=== PATIENT | female | born 1970 | race Caucasian/White ===

== ENCOUNTER 2019-09-01 18:23 | Inpatient (IN) | payer OTHER ==
[~2019-09-01] VITALS: Ht 152.4 cm; Wt 94.3 kg
--- NOTE | ~2019-09-01 | HC ---
[facility] [place] [address] CONSULTATION Name: CHARLOTTE POWELL Room #: 360-P ADM IN M.R.#: [id number] Admission: 09/01/19 Attend Phys: Bruce Meade MD Discharge: Date of : 70 Report #: [id number] THIS REPORT FOR: cc: MELE - Liz family physician/PCP MELE - Liz family physician/PCP Eze Berger MD ~ CC: [facility] physician/PCP Bruce Meade DATE OF SERVICE: 09/22/2019 HISTORY OF PRESENT ILLNESS: The patient is a 48-year-old female, Georgian-speaking, admitted with acute respiratory failure, COVID-19 pneumonia, was mechanically ventilated, able to be extubated after 8 days. She was treated with IV Solu-Medrol and IV antibiotics as per Infectious Disease. She was noted to have severe sepsis. She was diagnosed with acute renal insufficiency superimposed on chronic kidney disease. She has significant distal upper and lower extremity weakness with wrist drop and foot drop. She is gradually improving with her functional mobility. MRI of the T-spine was unremarkable. MRI of the lumbar spine is as noted with some degenerative changes. We have been consulted regarding her rehabilitation issues. PAST MEDICAL HISTORY: Includes diabetes mellitus type 2, obesity, elevated lipids and hypertension. MEDICATIONS: Please see the full medication listing. 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 She has a brother who also was COVID positive in the ICU. PHYSICAL EXAMINATION: The patient was not physically examined. She remains COVID positive. Therapies are working with her and she is noted to have wrist weakness in extension as well as ankle dorsiflexor weakness in physical therapy. She is improving with sit to stand, mod assist and she is starting to take some side steps to the commode with a front-wheeled walker. She has decreased endurance. Lower extremity dressing is max assist in OT. She is standing approximately 20 seconds before fatigue and is using the front-wheeled walker for balance. She is able to wash her face with min assist in OT. Max assist to doff socks. She has decreased endurance. She did undergo a swallow evaluation by speech and is on mechanical soft diet with thin liquids. ASSESSMENT: A 48-year-old Georgian-speaking female with the following problem list: 1. 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 Her weakness is distal upper and lower extremities greater than proximal. 2. COVID-19 positive, acute respiratory failure with pneumonia. [address] [address] CONSULTATION Name: CHARLOTTE POWELL Room #: 360-P [facility] IN ..#: [id number] Admission: 09/01/19 Attend Phys: Bruce Meade MD Discharge: Date of : 70 Report #: [id number] 3. Severe sepsis. 4. Acute renal insufficiency with chronic kidney disease, last creatinine has normalized. 5. Diabetes mellitus type 2. 6. Hypertension. 7. Hyperlipidemia. Note that Neurology is being consulted regarding the weakness. Their impression is most likely a neuropathy caused by the diabetes and aggravated by other problems including the kidney issues. PLAN: The patient is a candidate for an acute in-hospital inpatient [address] [place] [address] rehabilitation stay once she is COVID negative x 2. At this point, we will continue to follow along with you. Thank you for asking us to assist in this patient's care. By: [id number] Eze Berger MD /nt
[2019-09-01 18:43] VITALS: BP 124/68
[2019-09-01 19:46] LABS: ABSOLUTE NEUTROPHILS 8.7 thou/uL (1.4-8.2); BASOPHILS 0.2 % (0.0-2.0); HEMATOCRIT 36.3 % (37.0-47.0); HEMOGLOBIN 11.9 gm/dL (12.0-15.0); LYMPHOCYTES 11.1 % (24.0-44.0); MCH 30.4 pg (26.0-34.0); MCHC 32.7 g/dL (28.0-37.0); MCV 93.1 fL (80.0-100.0); MONOCYTES 5.2 % (1.0-8.0); PLATELET COUNT 227 thou/uL (150-400); POLYS 83.5 % (36.0-66.0); RDW 13.6 % (10.5-14.5); WBC 10.4 thou/uL (4.0-11.0)
[2019-09-01 19:55] LABS: ANION GAP 10 mmol/L (7-16); BUN 35 mg/dL (7-18); CALCIUM 8.9 mg/dL (8.5-10.1); CHLORIDE 96 mmol/L (98-107); CO2 25 mmol/L (21-32); CREATININE 1.5 mg/dL (0.6-1.0); GLUCOSE 261 mg/dL (74-106); SODIUM 131 mmol/L (136-145)
[2019-09-01 20:05] LABS: ALBUMIN 2.9 g/dL (3.4-5.0); SGOT 29 U/L (15-37); SGPT 59 U/L (30-65); TOTAL BILIRUBIN 0.4 mg/dL (0.2-1.0); TOTAL PROTEIN 7.5 g/dL (6.4-8.2); TROPONIN-I <0.06 ng/mL (<0.06)
[2019-09-01 21:50] LABS: CHOLESTEROL 147 mg/dL (<200); HDL CHOLESTEROL 57 mg/dL (>40); LDL CHOLESTEROL 56 mg/dL (<100); TC:HDL 2.6 Ratio (Not establshd); TRIGLYCERIDE 171 mg/dL (<150); VLDL 34 mg/dL (<40)
[2019-09-01] MEDS ORDERED: METOPROLOL TART25 MG PO (23:41)
[2019-09-01] MEDS ORDERED: ATORVASTATIN CA80 MG PO (23:41)
[2019-09-01] MEDS ORDERED: LISINOPRIL-HCT1 EAC2 PO (23:41)
[2019-09-01] MEDS ORDERED: AMLODIPINE BESY10 MG PO (23:41)
[2019-09-02] VITALS (9 sets, daily range): BP systolic 110–158; BP diastolic 62–98
--- NOTE | 2019-09-02 02:44 | NUR ---
0230 PT TO FLOOR, VITAL SIGNS TAKEN PT UP TO BEDSIDE COMMODE, ORIENTED TO ROOM. ATTEMPTING TO CALL TRANSLATION LINE TO COMPLETE ADMISSION ASSESSMENT.
[2019-09-02 06:00] LABS: HEMATOCRIT 33.8 % (37.0-47.0); HEMOGLOBIN 11.1 gm/dL (12.0-15.0); MCH 31.1 pg (26.0-34.0); MCHC 32.9 g/dL (28.0-37.0); MCV 94.6 fL (80.0-100.0); RBC 3.57 mil/uL (4.20-5.00); RDW 13.6 % (10.5-14.5); WBC 8.5 thou/uL (4.0-11.0)
[2019-09-02 06:05] LABS: CALCIUM 8.1 mg/dL (8.5-10.1); CREATININE 1.6 mg/dL (0.6-1.0); MAGNESIUM 1.9 mg/dL (1.8-2.4); POTASSIUM 4.6 mmol/L (3.5-5.1)
--- NOTE | 2019-09-02 08:07 | EKG ---
[facility] [place] [address] ELECTROCARDIOGRAM REPORT Name: CHARLOTTE POWELL Room #: 355-P ADM IN M.R.#: [id number] Admission: 09/01/19 Attend Phys: Bruce Meade MD Discharge: Date of : 70 Report #: [id number] THIS REPORT FOR: cc: FAM - No family physician/PCP FAM - No family physician/PCP Denny Morales MD [facility] ~ THIS REPORT FOR: //name// [facility] ED Test Date: 2019-09-01 Test Time: 19:57:22 Pat Name: CHARLOTTE MONTEZ Department: Room: [facility] Gender: F Technical Proposal Writer: DAVID : 1970 Requested By: Wojciech León Order Number: [id number] MD: Denny Morales Measurements Intervals [place] Rate: 100 P: 8 CO: 117 QRS: -25 QRSD: 85 T: 47 QT: 329 QTc: 425 Interpretive Statements Sinus tachycardia Borderline left axis deviation No previous ECG available for comparison Electronically Signed On 09-02-2019 8:06:58 CDT by Denny Morales [email or web address] <ELECTRONICALLY SIGNED> By: Denny Morales MD, [facility] 09/02/1906 56 56 Denny Morales MD, [facility] /EPI
--- NOTE | 2019-09-02 14:33 | NUR ---
Case opened to follow for dc planning. [employer] Leaf Printer spoke with the pt via phone as she is in enhanced ISO d/t covid+. She speaks Venezuelan only. She reports living with her dtr, son in law and grandchildren at [address], [facility]. Her son Cortes is her emergency contact at [phone]. 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 His name is Hamzah Garcia and he is currently in ICU. She has utlized the [facility] in [place] as well as [facility]. Support provided and case mgnt role introduced. Her cell number is [phone]. She would like to be updated as to her brother's condition. She reports that he is homeless and has been living out of her car. Her dtr did not want him staying with them d/t the virus. Pt may need script/or dme assistance at dc. Will follow.
--- NOTE | 2019-09-02 17:17 | NUR ---
ASSUMED CARE AT CHANGE OF SHIFT. PT ALERT X4, LIVES WITH SON AND DTR-N-LAW,BHUTANESE IS PRIMARY LANGUAGE. STEADY ON FEET. STAND BY FOR ASSIST TO TOILET. CRITICAL HIGH BS CURRENTLY ON INSULIN DRIP. 3 L NASAL CANNULA.NSR ON TELE. DENIES CHEST PAIN, HEADACHE MANAGED WITH PRN MEDICATIONS. SOB WITH EXERTIONS. GOOD COUGH EFFERT NOTED. VITALS STABLE. CALL LIGHT AND PERSONAL ITEMS IN REACH. CONTINUE TO MONITORL.
[2019-09-03] VITALS (56 sets, daily range): BP systolic 90–172; BP diastolic 53–89
[2019-09-03 00:06] LABS: GLYCOHEMOGLOBIN (HGB A1C) 14.9 % (4.8-5.6)
[2019-09-03 00:46] LABS: BE(vivo) -5.4 mmol/L (-2 to +3); HCO3 19.4 mmol/L (22.0-26.0); PCO2 35.6 mmHg (35.0-45.0); PO2 75.6 mmHg (80.0-100.0); pH 7.354 (7.360-7.450); sO2 94.7 % (92.0-98.0)
[2019-09-03 01:19] LABS: CALCIUM 8.3 mg/dL (8.5-10.1); CREATININE 1.8 mg/dL (0.6-1.0); POTASSIUM 3.9 mmol/L (3.5-5.1)
[2019-09-03 01:22] LABS: MAGNESIUM 2.1 mg/dL (1.8-2.4); PHOSPHORUS 3.3 mg/dL (2.5-4.9)
--- NOTE | 2019-09-03 03:18 | NUR ---
ASSUMED CARE OF PT APPROX 1900HRS. PT IS NON-JAPANESE SPEAKING (FIJIAN ONLY SPEAKING). COMMUNICATION BARRIERS. PT COVID POSITIVE ON ENHANCED PRECAUTIONS FOR COVID. PT ON ROOM 3L O2 PER NC AT HS. THIS NURSE CHECKED PT'S VITALS AT OOOOHRS O2 WAS 82%, O2 LEVEL INCREASED PER NC WHERE O2 LEVEL INCREASED ONLY TO 84%. RT STAFF ON NOTIFIED AND PROMPTLY RESPONDED TO CARE FOR THE PT. HOSPITALIST SALESFORCE TRAINER ALSO NOTIFIED FOR INCREASED 02 DEMAND. ORDERS OBTAINED FOR BLOOD GAS, BLOOD LAB WORK AND EVENTUALLY TRANSFER TO ICU. PRIOR TO TRANSFER PT WAS PUT ON NON-REBREATHER WITH 15L O2 WITH OXYGEN LEVEL UPTO 95%. ALL OTHER VITALS HAVE BEEN STABLE. PT HAD ORDER OBTAINED FOR REDEMSEVIR AT HS. ORDER FROM ID ON THE UNIT. PT CALLED HER SON (ROMA) VIA VIDEO CALL AND SON HELPED TRANSLATE FOR CONSENT SIGNING. PT ALSO ON INSULIN DRIP 6 UNITS AT SHIFT CHANGE, CHECKED Q1H PER ORDERS AND TITRATED PER PROTOCOL. SALESFORCE TRAINER NOTIFED PER ORDERS. INSULIN WAS >500 AT HS. AT THE TIME OF TRANSFER TO ICU INSULIN AT 0100HRS WAS 225 AND PT WAS ON 18UNITS PER DRIP. ENDOCRINOLOGY WAS CONSULTED AT HS BUT HAS NOT BEEN CALLED AT THIS TIME. PT TRANSFERED TO ICU APPROX 0145HRS. 15L VIA NON-REBREATHER. DR CASANOVA WAS NOTIFIED OF THIS TRANSFER BY THIS NURSE.
--- NOTE | 2019-09-03 04:48 | NUR ---
ASSESMENT: PT ARRIVED TO ROOM 245 AT APPROXIMATELY 0300, ACCOMPANIED BY STAFF. PT IS ALERT AND ORIENT TIMES THREE. SPEAKS MAINLY YI, DOES UNDERSTAND LITTLE TURKISH. DENIES PAIN. PT IS ON 15 LITERS ON A NON-REBREATHER. RR AT THE TIME OF ARRIVAL 30-35. SATS 90. PT IS TACHYPNEIC. VSS, AFEBRILE. INSULIN GTT CONTINUES WITH TITRATIONS ACCORDING TO PROTOCOL. MACHUCA PLACED FOR URGENCY. PT HAS A BROTHER THAT IS A POSITIVE COVID PT IN POD #1. CALL LIGHT AND PERSONAL ITEMS WITHIN REACH. SR PER MONITOR. SKIN NEGATIVE FOR WOUNDS. ABLE TO STAND WITH SBA. DENIES PAIN. SLOW PROGRESS, WILL CONTINUE TO MONITOR.
[2019-09-03 06:04] LABS: ABSOLUTE NEUTROPHILS 14.3 thou/uL (1.4-8.2); BASOPHILS 0.4 % (0.0-2.0); HEMATOCRIT 36.8 % (37.0-47.0); MCH 30.3 pg (26.0-34.0); MCHC 32.6 g/dL (28.0-37.0); MCV 92.9 fL (80.0-100.0); MONOCYTES 3.3 % (1.0-8.0); PLATELET COUNT 238 thou/uL (150-400); POLYS 90.3 % (36.0-66.0); RBC 3.96 mil/uL (4.20-5.00); RDW 13.6 % (10.5-14.5); WBC 15.9 thou/uL (4.0-11.0)
[2019-09-03 06:22] LABS: PROTIME 9.5 Seconds (9.3-11.4)
--- NOTE | 2019-09-03 06:25 | NUR ---
RESOURATORY: DR. CASANOVA WAS NOTIFIED AT 05:48 WITH PT'S CONDITION BEING 88% SATS ON 15 L NRB AND RR 36. PER JOCELYNE, "LET'S TRY BIPAP". RT SANTY NOTIFIED. NOTE: PT IS NOT IN A NEGATIVE PRESSURED ROOM. AFTER APPROXIMATELY 5 MINS PT'S CONDITION IS NOW 92% WITH THE SAME SETTINGS AND RR IS 20. WILL CONTINUE TO MONITOR.
[2019-09-03 06:27] LABS: FIBRINOGEN 640.1 mg/dL (210-360)
[2019-09-03 06:30] LABS: ALBUMIN 2.4 g/dL (3.4-5.0); CALCIUM 8.4 mg/dL (8.5-10.1); CREATININE 1.5 mg/dL (0.6-1.0); POTASSIUM 3.8 mmol/L (3.5-5.1); TOTAL BILIRUBIN 0.1 mg/dL (0.2-1.0); TOTAL PROTEIN 7.2 g/dL (6.4-8.2)
[2019-09-03 09:45] LABS: BE(vivo) -6.4 mmol/L (-2 to +3); PCO2 37.7 mmHg (35.0-45.0); PO2 52.5 mmHg (80.0-100.0); pH 7.321 (7.360-7.450); sO2 84.7 % (92.0-98.0)
--- NOTE | 2019-09-03 19:03 | NUR ---
VAT CONSULTED FOR A CL FOR THIS PT WHO IS COVID + AND HAS ICU NEEDS. TIP IN THE DSVC AND OK FOR USE PER PROTOCOL, PLEASE SEE NI FOR DETAILS.
[2019-09-03 19:26] LABS: BE(vivo) -7.9 mmol/L (-2 to +3); HCO3 18.3 mmol/L (22.0-26.0); PCO2 39.9 mmHg (35.0-45.0); PO2 73.8 mmHg (80.0-100.0); sO2 93.1 % (92.0-98.0)
[2019-09-03 19:27] LABS: pH 7.279 (7.360-7.450)
--- NOTE | 2019-09-03 20:21 | NUR ---
PT INTUBATED AT [address] CASANOVA, MYSELF, AND RT. CENTRAL LINE PLACED BY IV ACCESS TEAM. OG TUBE PLACED TO LIS. ALL LINES/TUBES CONFIRMED BY CXR. EDGE KITTER SERVICE WAS USED TO OBTAIN CONSENT FROM PT TO INTUBATE AND PLACE CENTRAL LINE. ADEQUATE UOP. NO BM. PT AND FAMILY WERE EDUCATED AND UPDATED ON PT'S CONDITION AND POC. WILL CONTINUE TO MONITOR.
[2019-09-04] VITALS (59 sets, daily range): BP systolic 92–154; BP diastolic 55–85
[2019-09-04 04:21] LABS: BE(vivo) -4.8 mmol/L (-2 to +3); HCO3 20.2 mmol/L (22.0-26.0); PCO2 37.1 mmHg (35.0-45.0); pH 7.353 (7.360-7.450); sO2 91.7 % (92.0-98.0)
--- NOTE | 2019-09-04 04:45 | NUR ---
PT IS ON THE VENT COVID POSITIVE. OXYGEN SATURATION IS 95 PERCENT ON FIO2 OF 100 PERCENT. ABDOMENN IS ROUND. LUNGS ARE COARSE. MACHUCA TO DD WITH YELLOW URINE PRESENT. SCDS ON BILAERAL. SUCTIONED AT TIMES. PT COUGHING. MINIMAL SECCREATIONS WHITE NOTED. YANKAR SUCTIONED ORAL TOO. RESTING COMFORTABLE REMAINS ON PROPOFOL DRIP. INSULIN DRIP ON WITH ACCUCHECKS Q HOURLY. WILL CONTINUE TO ASSESS AND MONIOR PER JAMILAH
[2019-09-04 11:41] LABS: CREATININE 1.6 mg/dL (0.6-1.0); MAGNESIUM 2.4 mg/dL (1.8-2.4); POTASSIUM 4.8 mmol/L (3.5-5.1)
--- NOTE | 2019-09-04 18:10 | NUR ---
PT INTUBATED AND SEDATED. DAY 2. FIO2 100% WITH INCREASED PEEP-14. PT PRONED AT 1600. SUSTAINS O2 SATURATIONS BETWEEN 89-91, PROVIDER AWARE. VERSED AND FENTANYL GTT ADDED IN ORDER TO TITRATE PROPOFOL. BLOOD GLUCOSE CONTROLLED WITH INSULIN GTT. PT HAS LOW UOP, 250ML/12 HOURS. PROVIDER AWARE, NO ORDERS GIVEN. NO BM TODAY. PT AND FAMILY HAVE BEEN UPDATED AND EDUCATED ON PT'S CONDITION AND POC. SLOWLY PROGRESSING TOWARDS POC. WILL CONTINUE TO MONITOR.
[2019-09-05] VITALS (24 sets, daily range): BP systolic 109–153; BP diastolic 67–87
[2019-09-05 05:47] LABS: ABSOLUTE NEUTROPHILS 9.9 thou/uL (1.4-8.2); BASOPHILS 0.4 % (0.0-2.0); HEMATOCRIT 35.2 % (37.0-47.0); HEMOGLOBIN 11.4 gm/dL (12.0-15.0); LYMPHOCYTES 10.3 % (24.0-44.0); MCH 30.4 pg (26.0-34.0); MCHC 32.4 g/dL (28.0-37.0); MCV 93.8 fL (80.0-100.0); MONOCYTES 3.5 % (1.0-8.0); PLATELET COUNT 292 thou/uL (150-400); POLYS 85.8 % (36.0-66.0); RBC 3.75 mil/uL (4.20-5.00); RDW 14.3 % (10.5-14.5); WBC 11.6 thou/uL (4.0-11.0)
[2019-09-05 06:02] LABS: ALBUMIN 2.1 g/dL (3.4-5.0); CALCIUM 8.3 mg/dL (8.5-10.1); CREATININE 1.3 mg/dL (0.6-1.0); POTASSIUM 4.2 mmol/L (3.5-5.1); TOTAL BILIRUBIN 0.2 mg/dL (0.2-1.0); TOTAL PROTEIN 6.9 g/dL (6.4-8.2)
[2019-09-05 06:11] LABS: PROTIME 9.9 Seconds (9.3-11.4)
[2019-09-05 06:16] LABS: FIBRINOGEN 525.5 mg/dL (210-360)
[2019-09-05 12:51] LABS: CALCIUM 7.8 mg/dL (8.5-10.1); MAGNESIUM 2.2 mg/dL (1.8-2.4); POTASSIUM 4.6 mmol/L (3.5-5.1)
--- NOTE | 2019-09-05 16:35 | NUR ---
PT IS INTUBATED AND SEDATED ( ACHIEVE RASS LEVEL OF -1 AND 0 ), PT OPENS EYES BY CHANGE HER POSITION , PT IS CONTINUING IV ABX AND IV FLUID , RN HAS CALLED DR TO REPORT PT'S BS , NEW ORDER DC INSULIN IV DRIP AND CHANGE INSULIN S/S , PT IS ON VENT WITH O2 90% TO KEEP O2SAT 92-96%, PT 'S VS AND BS ARE STABLE, PT IS RELAXING NOW.
[2019-09-06] VITALS (28 sets, daily range): BP systolic 104–171; BP diastolic 59–86
--- NOTE | 2019-09-06 01:44 | NUR ---
PATIENT STAYED PRONE UNTIL 0030. SHE HAD MIGRATED INTO AN UNCONFORTABLE LOOKING POSITION. PEEP INCREASED TO 14, AFTER SHE WAS TURNED BACK TO SEMI FOWLERS.
[2019-09-06 06:10] LABS: CREATININE 1.1 mg/dL (0.6-1.0); POTASSIUM 4.1 mmol/L (3.5-5.1)
--- NOTE | 2019-09-06 06:45 | NUR ---
KEEPING O2 SATS AT 100% THIS AM, CONTNUES ON 90% FI02, PEEP 14. SMALL AMOUNTS OF SPUTUM SUCTIONED. NO SIGNS OF PAIN. CAREPLAN REVIEWED.
[2019-09-06 08:45] LABS: BE(vivo) -4.7 mmol/L (-2 to +3); HCO3 19.9 mmol/L (22.0-26.0); PCO2 35.3 mmHg (35.0-45.0); PO2 108.1 mmHg (80.0-100.0); pH 7.368 (7.360-7.450); sO2 97.9 % (92.0-98.0)
--- NOTE | 2019-09-06 09:40 | NUR ---
RD TUBE FEEDING RECOMMENDATIONS: 1) REC Vital AF 1.2 given hx DM II, severely elevated A1c and recent insulin drip needs. 2) REC starting rate of 20 ml/hr, slowly advancing by ~15 ml q 12-24 hrs as tolerated to goal rate of 70-80 ml/hr if proning to continue & TFs turned off. *Goal Rate of 70 ml/hr if being proned ~4 hrs/day. *Goal Rate of 80 ml/hr if TFs off for up to 8 hrs/day for proning. This will provide 5000-4832 kcals/day (93-102% midrange energy needs), 96-105 g protein (> 100% goal protein) and limits CHO to 141-155 g/day.
[2019-09-06 09:59] LABS: DIRECT BILIRUBIN < 0.1 mg/dL (<0.1-0.2); SGOT 38 U/L (15-37); SGPT 30 U/L (30-65); TOTAL BILIRUBIN 0.2 mg/dL (0.2-1.0); TOTAL PROTEIN 6.5 g/dL (6.4-8.2); TRIGLYCERIDE 330 mg/dL (<150)
--- NOTE | 2019-09-06 13:48 | NUR ---
Telephone update given to pt's son, Cortes who had called in earlier to check o his Mom's status. Son indicated he has tested positive for COVID as well.
--- NOTE | 2019-09-06 15:02 | NUR ---
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 CM TO FOLLOW INDICATED WITH DC PLANNING.
--- NOTE | 2019-09-06 19:15 | NUR ---
Pt was taken off Propofol per physician order. Sedation maintained with Versed and Fentanyl. FIO2 was titrated to 80% today by RT. No proning done per instruction from Dr Kinsey. Tube feedings started per temperer recommendation. Maintained in COVID isolation. Report given to RN assuming care.
[2019-09-07] VITALS (24 sets, daily range): BP systolic 109–156; BP diastolic 55–78
[2019-09-07 04:24] LABS: BE(vivo) -2.5 mmol/L (-2 to +3); HCO3 21.7 mmol/L (22.0-26.0); PCO2 35.4 mmHg (35.0-45.0); pH 7.405 (7.360-7.450); sO2 87.7 % (92.0-98.0)
[2019-09-07 04:26] LABS: PO2 52.6 mmHg (80.0-100.0)
[2019-09-07 06:04] LABS: HEMATOCRIT 33.2 % (37.0-47.0); HEMOGLOBIN 10.8 gm/dL (12.0-15.0); MCH 30.2 pg (26.0-34.0); MCHC 32.5 g/dL (28.0-37.0); MCV 92.8 fL (80.0-100.0); RBC 3.57 mil/uL (4.20-5.00); WBC 12.4 thou/uL (4.0-11.0)
[2019-09-07 06:40] LABS: CREATININE 0.9 mg/dL (0.6-1.0); MAGNESIUM 1.9 mg/dL (1.8-2.4)
--- NOTE | 2019-09-07 12:19 | 2DMMODE ---
[facility] [place] [address] 2 D/M-MODE ECHOCARDIOGRAM Name: COREY MELIDACHARLOTTE Room #: 245-P ADM IN M.R.#: [id number] Admission: 09/01/19 Attend Phys: Bruce Meade MD Discharge: Date of : 70 Report #: [id number] THIS REPORT FOR: cc: FAM - No family physician/PCP FAM - No family physician/PCP Jonatan Johansen MD ~ APPROVED REPORT Study performed: 09/07/2019 10:25:04 EXAM: Limited 2D, Doppler, and color-flow Echocardiogram Patient Location: ICU Room #: [facility] Status: routine BSA: 1.97 HR: 84 bpm BP: 135/66 mmHg Rhythm: NSR Other Information Study Quality: Adequate Technically limited study due to morbid obesity, patient on right side, on vent. Indications COVID-19 positive. Limited echo for shortness of breath. On vent. Aortic Valve AoV Peak Evert.: 1.55 m/s AO Peak Gr.: 9.60 mmHg Mitral Valve E/A Ratio: 0.9 MV Decel. Time: 370.31 ms MV E Max Evert.: 0.73 m/s MV A Evert.: 0.83 m/s MV PHT: 107.39 ms Pulmonary Valve PV Peak Evert.: 0.95 m/s PV Peak Gr.: 3.59 mmHg Tricuspid Valve TR Peak Evert.: 2.53 m/s RAP Estimate: 10.00 mmHg TR Peak Gr.: 26.00 mmHg [facility] [address] [place] [address] 2 D/M-MODE ECHOCARDIOGRAM Name: COREY MONTEZCHARLOTTE Room #: 245-P ADM IN M.R.#: [id number] Admission: 09/01/19 Attend Phys: Bruce Meade, Discharge: Date of : 70 Report #: [id number] Pressure: 36.00 mmHg Left Ventricle The left ventricle is normal size. There is normal LV segmental wall motion. Left ventricular systolic function is normal. LVEF is 60-65%. Mild diastolic dysfunction is present (impaired relaxation pattern). Right Ventricle Right ventricle is not well visualized. Atria The left atrium size is normal. The right atrium size is normal. Aortic Valve The aortic valve is normal in structure. No aortic regurgitation is present. There is no aortic valvular stenosis. Mitral Valve The mitral valve is normal in structure. There is no mitral valve regurgitation noted. No evidence of mitral valve stenosis. Tricuspid Valve The tricuspid valve is normal in structure. Mild tricuspid regurgitation. Estimated PAP is 35mmHg. Pulmonic Valve Trace pulmonic regurgitation. Great Vessels IVC is normal in size and collapses <50% with inspiration. Pericardium There is no pericardial effusion. <Conclusion> The left ventricle is normal size. Left ventricular systolic function is normal. Mild diastolic dysfunction is present (impaired relaxation pattern). Right ventricle is not well visualized. The left atrium size is normal. The aortic valve is normal in structure. [facility] [address] [place] [address] 2 D/M-MODE ECHOCARDIOGRAM Name: COREY MONTEZCHARLOTTE Room #: 245-P [facility] IN .R.#: [id number] Admission: 09/01/19 Attend Phys: Bruce Meade, Discharge: Date of : 70 Report #: [id number] There is no mitral valve regurgitation noted. Mild tricuspid regurgitation. Estimated PAP is 35mmHg. <ELECTRONICALLY SIGNED> By: Jonatan Johansen MD 09/07/19 1219 18 18 Jonatan Johansen MD /INF
--- NOTE | 2019-09-07 14:52 | NUR ---
ON-GOING ASSESSMENT: PT REMAINS ON THE VENTILATOR AND THEY ARE CONTINUING TO PRONE. PT IS NOT READY FOR WEANING TRIALS AT THIS TIME. PT IS UKRAINIAN SPEAKING ONLY. PT REMAINS VERY ILL AND ON MAXIMAL FI02 AND PEEP. CM WILL CONTINUE TO FOLLOW TO ASSIST NEEDED.
[2019-09-08] VITALS (21 sets, daily range): BP systolic 126–158; BP diastolic 67–79
--- NOTE | 2019-09-08 05:18 | NUR ---
ASSESSMENT: PT TOLERATING VENT. A-LINE ACCIDENTLY PULLED OUT BY TECH WHILE UNRESTRAING PT DURING BATH. PRESSURE HELD AT WRIST, COAGULATION FORMED. LOW GRADE TEMP PER ORAL TEMP. UO ADEQUATE. VENT SETTINGS: TV 500, AC 20, FIO2 60%, PEEP 12. TOLERATING TF PER OG TUBE, LOW RESIDUALS RETURNED. RIGHT IJ INTACT AND PATENT SR-ST PER MONITOR. RESTRAINTS INTACT. PER QASIM MICHELLE...HOLD LASIX FOR NOW. SLOW PROGRESS, WILL CONTINUE TO MONITOR.
[2019-09-08 06:02] LABS: HEMATOCRIT 31.9 % (37.0-47.0); HEMOGLOBIN 10.5 gm/dL (12.0-15.0); MCH 30.9 pg (26.0-34.0); MCHC 32.9 g/dL (28.0-37.0); MCV 93.9 fL (80.0-100.0); RBC 3.4 mil/uL (4.20-5.00); RDW 13.8 % (10.5-14.5)
[2019-09-08 06:10] LABS: CALCIUM 8.4 mg/dL (8.5-10.1); CREATININE 1.1 mg/dL (0.6-1.0); MAGNESIUM 2.2 mg/dL (1.8-2.4); POTASSIUM 4.6 mmol/L (3.5-5.1)
--- NOTE | 2019-09-08 10:00 | NUR ---
TF clarification: 1. If no proning during day, run vital AF 1.2 at 50ml/hr 2. If proning, then needs a daily volume of tube feeding of 1200ml. Adjust rate accordingly to meet this volume in a 24 hr period
--- NOTE | 2019-09-08 10:44 | NUR ---
ASSUMED CARE AT 0700, ASSESSMENT AND VITAL SIGNS COMPLETED PER ICU PROTOCOL. DR. GARIBAY BEDSIDE THIS AM TO PLACE A NEW ARTERIAL LINE, THE OTHER ONE CAME OUT DURING A BATH OVERNIGHT, PER REPORT. ARTERIAL LINE SUCCESSFULLY PLACE, FLOTRACK SET UP AND MONITORING. DR. SIMMONS ROUNDED THIS AM, UPDATE PROVIDED AND PLAN OF CARE DISCUSSED. RN WILL CONTINUE TO MONITOR.
[2019-09-09] VITALS (36 sets, daily range): BP systolic 103–146; BP diastolic 55–76
--- NOTE | 2019-09-09 03:42 | NUR ---
PT IS COVID POSITIVE IN ENHANCED ISOLATION ROOM. TEMPERATURE IS 104 F. ICE PACKS AND COOL WAS CLOTH GIVEN TO HELP WITH FEVER. BLOOD CULTURES AND URINE CULTURE REQUESTED PER DR. OLEA. UPDATED HIM ON PT'S STATUS AT THIS TIME. LUGNS ARE COARSE. TO DIMINISHED. REMAINS ON THE VENT. O2 SATURATION IS 97 PERCENT. SCDS ON BILAERATL. TOLERATING TUBE FEEDING. BLOOD SUGARDS REMAIN HIGH BUT ON STEROIDS TOO AT THIS TIME. ENDOCRINE IS MANAGING BLOOD SUGARS. WILL CONTINUE TO MONITOR AND ASSESS PER NURSING AT THIS TIME.
[2019-09-09 05:00] LABS: BE(vivo) -1.6 mmol/L (-2 to +3); HCO3 22.8 mmol/L (22.0-26.0); PCO2 37.6 mmHg (35.0-45.0); PO2 97.6 mmHg (80.0-100.0); pH 7.401 (7.360-7.450); sO2 97.5 % (92.0-98.0)
[2019-09-09 05:15] LABS: HEMATOCRIT 26.1 % (37.0-47.0); MCH 30.5 pg (26.0-34.0); MCHC 32.3 g/dL (28.0-37.0); MCV 94.3 fL (80.0-100.0); RBC 2.77 mil/uL (4.20-5.00); RDW 13.9 % (10.5-14.5); WBC 13.1 thou/uL (4.0-11.0)
[2019-09-09 05:23] LABS: HEMOGLOBIN 8.4 gm/dL (12.0-15.0)
[2019-09-09 05:40] LABS: CALCIUM 8.7 mg/dL (8.5-10.1); CREATININE 1.6 mg/dL (0.6-1.0); MAGNESIUM 2.4 mg/dL (1.8-2.4); POTASSIUM 4.6 mmol/L (3.5-5.1)
[2019-09-09 08:54] LABS: URINE BILIRUBIN NEGATIVE (Negative); URINE BLOOD 2+ (Negative); URINE COLOR YELLOW; URINE GLUCOSE-RANDOM* 3+ (Negative); URINE KETONES NEGATIVE (Negative); URINE LEUKOCYTES-REFLEX NEGATIVE (Negative); URINE NITRITE-REFLEX NEGATIVE (Negative); URINE PROTEIN (DIPSTICK) 2+ (Negative); URINE SPECIFIC GRAVITY 1.015 (1.005-1.035); URINE UROBILINOGEN 0.2 E.U./dl (0.2-1.0)
[2019-09-09 08:55] LABS: URINE CLARITY HAZY
[2019-09-09 09:03] LABS: CASTS None Seen /LPF (None Seen); SQUAMOUS 4-10 Moderate /LPF (0-3)
[2019-09-09 09:04] LABS: BACTERIA-REFLEX 1-9 Few /HPF (None Seen); URINE RBC 0-2 Rare /HPF (0-2); URINE WBC-REFLEX 0-5 Rare /HPF (0-5); YEAST-REFLEX Present (None Seen)
[2019-09-09 09:05] LABS: CRYSTALS None Seen /LPF (None Seen)
--- NOTE | 2019-09-09 10:19 | NUR ---
DR. VALDERRAMA ROUNDED. UPDATED ON PATIENT STATUS. REMAINS FEBRILE, TYLENOL GIVEN. PT TOLERATING TUBE FEEDINGS BUT REMAINS HYPERGLYCEMIC WITH SUGARS IN THE 400'S. ENDOCRINE FOLLOWING. WAITING FOR BLOOD AND URINE CULTURE RESULTS (SENT LAST NIGHT). NOT APPROPRIATE FOR WEANING. PEEP OF 12, 60% FIO2. MAINTAING SATS. TACHYCARDIC. LEFT RADIAL RADHA INTACT, BLOOD PRESSURES STABLE. FLOW TRACK MONTIORING.
--- NOTE | 2019-09-09 11:54 | HC ---
[facility] [place] [address] CONSULTATION Name: COREY MONTEZCHARLOTTE Room #: [facility]- ADM IN M.R.#: [id number] Admission: 09/01/19 Attend Phys: Bruce Meade MD Discharge: Date of : 70 Report #: [id number] THIS REPORT FOR: cc: MELE Hill family physician/PCP MELE Hill family physician/PCP Shirley Brambila MD ~ CC: [facility] physician/PCP Bruce Meade DATE OF SERVICE: 09/07/2019 ENDOCRINE CONSULTATION NOTE CONSULTING PHYSICIAN: Dr. Draper. REASON FOR CONSULTATION: Type 2 diabetes mellitus. HISTORY OF PRESENT ILLNESS: This is a 48-year-old female patient whose medical background is significant for type 2 diabetes mellitus, who presented to the ER with complaints of shortness of breath, cough, fever, myalgia and reported exposure to COVID-19. Apparently, her brother has been admitted to [facility] with COVID-19 positive status. She has later on proved to be positive for that as well and has shortly after arrival developed hypoxemic respiratory failure with O2 saturation in the 80s, which prompted support with mechanical ventilation. Again, the patient's medical history is noted for type 2 diabetes mellitus, hypertension, and hyperlipidemia, but there is no documentation of active antidiabetic therapy. She is known to have hypertension and is maintained on amlodipine 10 mg daily, metoprolol 25 mg q. 12 hours, lisinopril/hydrochlorothiazide 20/25 mg daily. She is also hyperlipidemic and is maintained on atorvastatin 80 mg daily. The patient continues to be intubated. REVIEW OF SYSTEMS: Could not be obtained at this point in time due to the patient's intubated and sedated state. PAST MEDICAL HISTORY: 1. Type 2 diabetes mellitus. 2. Hypertension. 3. Hyperlipidemia. OUTPATIENT MEDICATIONS: Amlodipine 10 mg daily, metoprolol 25 mg b.i.d., atorvastatin 80 mg daily, lisinopril/hydrochlorothiazide 20/25 mg daily. [facility] [address] [place] [address] CONSULTATION Name: CHARLOTTE POWELL Room #: 245-P [facility] IN M.R.#: [id number] Admission: 09/01/19 Attend Phys: Bruce Meade MD Discharge: Date of : 70 Report #: [id number] ALLERGIES: No known drug allergies. FAMILY HISTORY: Noncontributory. SOCIAL HISTORY: There is no documentation of tobacco or alcohol use. PHYSICAL EXAMINATION: GENERAL: female patient, intubated and sedated. VITAL SIGNS: Blood pressure is 128/66 mmHg, heart rate is 87 beats per minute, respirations 24 per minute, temperature 37.6 degrees. CONSTITUTIONAL: The patient is intubated and sedated, does not appear to be in pain or distress. HEENT: Anicteric sclerae. NECK: Supple, no thyromegaly. CHEST: Noted for limited air entry bilaterally with scattered rales. No crackles. HEART: Regular rate and rhythm without murmurs or gallops. ABDOMEN: Soft, lax. No guarding. Active bowel sounds. EXTREMITIES: Lower extremity exam is noted for trace ankle edema. No skin breaks or ulcerations. Pedal pulses are appreciated. NEUROLOGIC: The patient is sedated. PSYCHIATRIC: The patient is sedated. LABORATORY DATA: Blood glucose over the past 24 hours have ranged from 131-220 mg/dL. Sodium 145, potassium 4.0, chloride 111, CO2 of 23, anion gap 11, BUN 27, creatinine 0.9, AST 38, total bilirubin 0.2, calcium 8.0, phosphorus 3.3, magnesium 1.9, alkaline phosphatase 92, ALT 30, total protein 6.5, albumin 2.0. EGFR 67. Lactic acid 1.1. Troponin is negative. Total cholesterol 147, triglycerides 242, HDL 57, LDL 56. INR 1.0. White blood count 12.4, hemoglobin 10.8, hematocrit 33.2, platelets 364. Vitamin D 17.4. Hemoglobin A1c is 14.9%. ASSESSMENT AND PLAN: 1. Type 2 diabetes mellitus. Uncontrolled with a documented hemoglobin A1c of 14.9%. I do not see a documentation of active antidiabetic therapy to begin with. The patient was maintained on IV insulin therapy initially and was later on switched to a combination of Lantus insulin 30 units at bedtime in addition to a Humalog supplemental scale low or moderate intensity. She seems to have done reasonably well with this regimen, however, with the sustained blood glucose range towards the upper limit of target range and above that. That said, I will raise her glargine dose to 36 units at bedtime while we keep her Humalog supplemental scale at the current moderate intensity. My discussions with the nursing staff indicated that the patient was recently started on tube feeding and is currently at a rate of 20 mL an hour, that is being planned to progress to target rate over the next 24 hours or so. When that is established and is consistent, I would move towards covering the patient with scheduled [facility] [address] [facility] [place] [address] CONSULTATION Name: CHARLOTTE POWELL Room #: 245-P ADM IN M.R.#: [id number] Admission: 09/01/19 Attend Phys: Bruce Meade MD Discharge: Date of : 70 Report #: [id number] Humalog intake to account for her nutritional supplements. 2. Pneumonia. The patient proved to be COVID positive and is currently being followed by the Pulmonary team. She is treated with methylprednisolone 40 mg q.i.d., remdesivir and is requiring support with mechanical ventilation. 3. Hypertension. The patient's level of blood pressure control is adequate. Continue the current regimen. 4. Hyperlipidemia. The patient is maintained on atorvastatin as an outpatient, this is to be resumed once her overall clinical state is permissive of that. 5. Vitamin D deficiency. The patient proved to have moderate vitamin D deficiency at 17.6. This will eventually need to be addressed to ensure vitamin D adequacy. I have reviewed the patient's clinical care notes, laboratory data, and other pertinent clinical information for over 35 minutes in addition to my encounter time with the patient. I appreciate this consultation by Dr. Draper. <ELECTRONICALLY SIGNED> By: Shirley Brambila MD 09/09/19 1154 1614 1820 Shirley Brambila MD /nt
--- NOTE | 2019-09-09 14:23 | NUR ---
BLOOD SUGAR CRITICAL AT >500, DR. VAZQUEZ ROUNDED AND DISCONTINUED SLIDING SCALE INSULIN. PATIENT STARTED ON INSULIN GTT. WILL CONTINUE TO MONTIOR BLOOD SUGARS Q1HR.
[2019-09-10] VITALS (45 sets, daily range): BP systolic 109–144; BP diastolic 54–76
[2019-09-10 05:15] LABS: BE(vivo) -0.2 mmol/L (-2 to +3); HCO3 24.6 mmol/L (22.0-26.0); PCO2 40.9 mmHg (35.0-45.0); PO2 88.6 mmHg (80.0-100.0); pH 7.397 (7.360-7.450); sO2 96.7 % (92.0-98.0)
--- NOTE | 2019-09-10 06:00 | NUR ---
REMAINS INTUBATED AND SEDATED. SINUS RHYTHM. 2500 CC UO THIS SHIFT. BECOMES VERY RESTLESS AND AGITATED IF SEDATION IS LIGHTENED. ART LINE INTACT. NO STOOLS TONIGHT. AFEBRILE 50 % FIO2 WILL CONT TO MONITOR
[2019-09-10 06:40] LABS: BASOPHILS 0.4 % (0.0-2.0); EOSINOPHILS 0.1 % (0.0-3.0); HEMATOCRIT 33.3 % (37.0-47.0); LYMPHOCYTES 3.8 % (24.0-44.0); MCH 30.2 pg (26.0-34.0); MCHC 32.2 g/dL (28.0-37.0); MCV 93.9 fL (80.0-100.0); MONOCYTES 5.1 % (1.0-8.0); PLATELET COUNT 397 thou/uL (150-400); POLYS 90.6 % (36.0-66.0); RBC 3.54 mil/uL (4.20-5.00); RDW 14.1 % (10.5-14.5); WBC 15.4 thou/uL (4.0-11.0)
[2019-09-10 06:56] LABS: HEMOGLOBIN 10.7 gm/dL (12.0-15.0)
[2019-09-10 06:58] LABS: PROTIME 10.1 Seconds (9.3-11.4)
[2019-09-10 07:38] LABS: ALBUMIN 1.9 g/dL (3.4-5.0); CALCIUM 9.1 mg/dL (8.5-10.1); CREATININE 1.2 mg/dL (0.6-1.0); POTASSIUM 3.3 mmol/L (3.5-5.1); TOTAL BILIRUBIN 0.1 mg/dL (0.2-1.0); TOTAL PROTEIN 6.3 g/dL (6.4-8.2)
--- NOTE | 2019-09-10 10:19 | NUR ---
New tube feed goal rate is 60ml/hr of vital AF 1.2. Please address fluid needs with physician, pts Na level is 158
--- NOTE | 2019-09-10 12:11 | NUR ---
ASSUMED CARE AT 0700, ASSESSMENT AND VITAL SIGNS COMPLETED PER ICU PROTOCOL. DR. GARIBAY ROUNDED THIS AM, PLAN OF CARE DISCUSSED, RN WILL CONTINUE TO MONITOR. DR. SIMMONS ROUNDED WELL, PLAN OF CARE DISCUSSED.
--- NOTE | 2019-09-10 14:12 | NUR ---
chart review. pt remains intubated, prone vent at times. tube feeding for nutrition support. new order for insulin drip rt increased bs. no anticipated dc through weekend. will cont following as needed for dc needs.
[2019-09-11] VITALS (24 sets, daily range): BP systolic 120–148; BP diastolic 68–80
[2019-09-11 04:33] LABS: BE(vivo) -0.8 mmol/L (-2 to +3); HCO3 24.3 mmol/L (22.0-26.0); PO2 116.7 mmHg (80.0-100.0); sO2 98.2 % (92.0-98.0)
[2019-09-11 05:37] LABS: WBC 17.4 thou/uL (4.0-11.0)
[2019-09-11 05:40] LABS: HEMATOCRIT 31.7 % (37.0-47.0); MCHC 31.7 g/dL (28.0-37.0); MCV 94.8 fL (80.0-100.0); PLATELET COUNT 398 thou/uL (150-400); RBC 3.34 mil/uL (4.20-5.00); RDW 14.4 % (10.5-14.5)
[2019-09-11 05:53] LABS: ALBUMIN 1.9 g/dL (3.4-5.0); CALCIUM 8.5 mg/dL (8.5-10.1); CREATININE 1.1 mg/dL (0.6-1.0); POTASSIUM 3.7 mmol/L (3.5-5.1); TOTAL BILIRUBIN 0.1 mg/dL (0.2-1.0)
--- NOTE | 2019-09-11 08:57 | NUR ---
ASSUMED CARE AT 0700, ASSESSMENT AND VITAL SIGNS COMPLETED PER ICU PROTOCOL. DR. LANI OTTO, PLAN OF CARE DISCUSSED, RN WILL CONTINUE TO MONITOR.
[2019-09-11 10:34] LABS: BE(vivo) -0.3 mmol/L (-2 to +3); HCO3 25.1 mmol/L (22.0-26.0); PCO2 44.5 mmHg (35.0-45.0); PO2 67.7 mmHg (80.0-100.0)
[2019-09-11 11:40] LABS: ABSOLUTE NEUTROPHILS 16.2 thou/uL (1.4-8.2); ATYPICAL LYMPHS 2 %
[2019-09-11 21:25] LABS: CALCIUM 8.5 mg/dL (8.5-10.1); CREATININE 1.1 mg/dL (0.6-1.0); POTASSIUM 4.1 mmol/L (3.5-5.1)
[2019-09-12] VITALS (30 sets, daily range): BP systolic 96–183; BP diastolic 54–96
[2019-09-12 07:03] LABS: CALCIUM 8.6 mg/dL (8.5-10.1); CREATININE 1.1 mg/dL (0.6-1.0); POTASSIUM 4.8 mmol/L (3.5-5.1)
--- NOTE | 2019-09-12 07:32 | NUR ---
Assessment and intervention documented. Patient tolerated CPAP all night. Stable no signs and symptoms of distress. Patient remains intubated. No adverse events throughout the night. Patient is progressing toward goals.
--- NOTE | 2019-09-12 09:20 | NUR ---
ASSUMED CARE AT 0700, ASSESSMENT AND VITAL SIGNS COMPLETED PER ICU PROTOCOL. DR. GARIBAY ROUNDING, PLAN OF CARE DISCUSSED. PT HAS BEEN IN CPAP MODE FOR 24 HOURS, DR. GARIBAY SAID WHEN RT ROUNDS TO CONVERT HER BACK TO A/C. INSULIN GTT WAS AT 25mL/hr WHEN RN ASSUMED CARE. RN INCREASED GTT TO 26mL/HR BASED ON BLOOD SUGAR.
[2019-09-12 16:23] LABS: CALCIUM 8.8 mg/dL (8.5-10.1)
[2019-09-13] VITALS (24 sets, daily range): BP systolic 88–174; BP diastolic 30–99
[2019-09-13 06:33] LABS: CALCIUM 8.6 mg/dL (8.5-10.1); CREATININE 0.9 mg/dL (0.6-1.0); POTASSIUM 4.8 mmol/L (3.5-5.1)
--- NOTE | 2019-09-13 06:35 | NUR ---
Assessment and interventions documented. Patient is bengali speaking follows commands when spoken to in bengali. Signs of discomfort during sedation vacation. Show reliable yes and no's when asked questions. Tolerating CPAP setting well. Patient is stable progressing towards goal. Will continue to monitor.
--- NOTE | 2019-09-13 07:16 | NUR ---
Assumed care fron night nurse Patient placed on CPAP.
--- NOTE | 2019-09-13 09:16 | NUR ---
chart review. pt remains intubated, prone. tube feeding for nutritional support. insulin gtts, iv medications and gtts. weaning cpap trails per notes. will cont following as needed for dc needs.
[2019-09-13 16:41] LABS: CALCIUM 6.9 mg/dL (8.5-10.1); CREATININE 0.8 mg/dL (0.6-1.0)
[2019-09-13 16:43] LABS: POTASSIUM 3.5 mmol/L (3.5-5.1)
--- NOTE | 2019-09-13 19:00 | NUR ---
PATIENT PROGRESSING TOWARDS OUTCOME GOALS EVIVENT BY. REMAINED ON CPAP THROUGHOUT THE DAY WITH RESP RATE IN THE LOWER 20'S, O2 SAT IN THE MID 90'S AND MONITOR SHOWING NSR. TUBE FEEDINGS RESTARTED. PATIENT EASILY AROUSES. REMAINS ON PRECEDEX AND FENTANYL. INSULIN TITRATED BLOOD SUGAR 158 - 195 THIS AFTERNOON.
[2019-09-13 19:09] LABS: CALCIUM 8.5 mg/dL (8.5-10.1); CREATININE 0.8 mg/dL (0.6-1.0); POTASSIUM 4.4 mmol/L (3.5-5.1)
[2019-09-14] VITALS (33 sets, daily range): BP systolic 85–188; BP diastolic 41–109
[2019-09-14 07:32] LABS: CALCIUM 8.7 mg/dL (8.5-10.1); CREATININE 0.8 mg/dL (0.6-1.0)
[2019-09-14 12:11] LABS: BE(vivo) 0.1 mmol/L (-2 to +3); PCO2 36.6 mmHg (35.0-45.0); PO2 76.2 mmHg (80.0-100.0); pH 7.435 (7.360-7.450); sO2 95.7 % (92.0-98.0)
--- NOTE | 2019-09-14 12:38 | NUR ---
ASSESSMENTS AND INTERVENTIONS DOCCUMENTED. PATIENT RESTING. PATIENT TRYING TO COMMUNICATE WITH RN. PATIENT UNDERSTANDING SOME GREEK. ART LINE AND CVP DISCONTINUED PER DR. GARIBAY. SON CALLING TO GET AN UPDATE. UPDATE GIVEN. SON EDUCATED ON POC. DR. VALDERRAMA ROUNDING, NO NEW ORDERS. PATIENT REMIANED ON CPAP, ABG WNL. ORDERS TO EXTUBATE PATIENT. RT AT BEDSIDE.
[2019-09-14 19:05] LABS: CALCIUM 8.5 mg/dL (8.5-10.1); CREATININE 0.8 mg/dL (0.6-1.0); POTASSIUM 4.7 mmol/L (3.5-5.1)
[2019-09-15] VITALS (15 sets, daily range): BP systolic 108–143; BP diastolic 68–86
[2019-09-15 06:05] LABS: HEMATOCRIT 38.5 % (37.0-47.0); HEMOGLOBIN 12.6 gm/dL (12.0-15.0); MCH 30.1 pg (26.0-34.0); MCHC 32.8 g/dL (28.0-37.0); MCV 91.6 fL (80.0-100.0); PLATELET COUNT 325 thou/uL (150-400); RDW 13.5 % (10.5-14.5); WBC 19.5 thou/uL (4.0-11.0)
[2019-09-15 06:26] LABS: CALCIUM 8.8 mg/dL (8.5-10.1); CREATININE 0.8 mg/dL (0.6-1.0); POTASSIUM 4.1 mmol/L (3.5-5.1)
--- NOTE | 2019-09-15 09:19 | NUR ---
ASSUMMED PT CARE AT AROUND 1900, PT IS AWAKE, ALERT, PT WAS EXTUBATED AND IS ON 8L HIGH FLOW NC O2SATS STABLE, BS STABLE, SR ON DARRYN MONITOR, PT IS OFF SEDATION, ASSESSMENTS CHARTED, REMAINS NPO, ADEQUATE AMOUNT OF URINE OVERNIGHT, LARGE BM THIS MORNING. NO DISTRESS NOTED, PROGRESSING WELL TOWARS POC
[2019-09-15 11:24] LABS: ABSOLUTE NEUTROPHILS 18.3 thou/uL (1.4-8.2); ANISOCYTOSIS SLIGHT; BURR CELLS FEW; POIKILOCYTOSIS SLIGHT
[2019-09-15 11:25] LABS: LARGE PLATELETS OCCASIONAL
--- NOTE | 2019-09-15 13:29 | NUR ---
Pt was extubated yesterday and stable for tx out of the ICU today back to 3W. Therapy evals are in progress for diet and rehab recommendations. Pt is very weak. Nursing has updated her son Cortes. Medassist notified and they will reattempt to screen the pt for [place] medicaid application/justyna application. Will follow.
--- NOTE | 2019-09-15 15:58 | NUR ---
PT ARRIVED TO THE UNIT, ALL BELONGINGS WITH THE PATIENT INCLUDING (PHONE/BAG/DIRECTOR WEIGHTS AND MEASURES/CLOTHES). PT WAS DESATING TO HIGH 80s ON 3L/NC SO PT WAS MOVED UPTO 4L, AT LOW 90s NOW. VS ARE STABLE. WAS TOLD IN REPORT THAT INSULIN DRIP WAS DC'D AT 1100 AT THE ICU. PT'S BLOOD SUGAR UPON ARRIVAL WAS IN THE 230s. WILL RECHECK FOR 1600 AND ADMINISTER INSULIN VIA SLIDING SCALE. PT'S PRIMARY CONCERN AT THIS TIME IS FINDING OUT MORE INFORMATION ABOUT HER BROTHER, RN HELPED THE PATIENT CONTACT THE SON WHO WAS ABLE TO PROVIDE UPDATES REGARDING THE FAMILY MATTER. PT IS IN A WEAK STATE AT THIS TIME. PT USED THE BEDPAN TO PASS BOWEL MOVEMENT WHEN SHE ARRIVED. NO OTHER CONCERNS FROM THE PATIENT AT THIS TIME. WILL CONTINUE TO MONITOR AND UPDATE NECESSARY.
[2019-09-16 05:08] VITALS: BP 102/63
--- NOTE | 2019-09-16 07:24 | NUR ---
ASSUMED PT CARE AROUND 1930. ALERT AND AWAKE. DIFFICULTY COMMUNICATING PER PT ONLY SPEAKS RUSSIAN, UTILIZED MOVIE OPERATOR SERVICE TO PROVIDE CARE. VSS. NO S/S ACUTE DISTRESS NOTED OR REPORTED AT THIS TIME. CARE TRNASFERRED TO AM RN AT THIS TIME.
[2019-09-16 07:51] VITALS: BP 106/64
--- NOTE | 2019-09-16 13:00 | NUR ---
POWER reviewed chart and spoke with nursing and attending physician. Pt transferred to 3 from ICU. Remains in Enhanced Isolation due to COVID-19. Therapy is working with pt to assist with recommendations at time of discharge. Repeat COVID test ordered today. SW discussed case with rehab trainer. Pt will need two negative COVID tests in order to be accepted to . Med Assist is following to assist pt with financial assistance application. POWER is following to assist as needed with discharge planning.
[2019-09-16 15:47] VITALS: BP 115/77
--- NOTE | 2019-09-16 16:21 | NUR ---
PT HAS BEEN RUNNING HIGH BLOOD SUGAR, WAS SEEN BY DATABASE CONSULTANT TODAY, NOW POC IS TO GIVE INSULIN WITH MEALS WELL COVERAGE. PT ALSO HAD GREAT PAIN THIS AM, WITH COMBINATION OF PT/OT STRETCHING/MOBILITY EXERCISE, AND IBUPROFEN/GABAPENTIN, PT IS VISIBLY LESS IN DISTRESS AT THIS TIME. PT HAS A HEALTHY APPETITE. PT'S SON WAS CONTACTED PER PT'S REQUEST. PRAFO BOOTS HAVE BEEN ORDERED AND NOW IN PLACE. VS ARE STABLE. WILL UPDATE NECESSARY
[2019-09-16 20:29] VITALS: BP 143/80
[2019-09-17 03:45] VITALS: BP 133/82
[2019-09-17 04:22] VITALS: BP 128/82
--- NOTE | 2019-09-17 06:22 | NUR ---
Assumed pt care at 1900. A/OX3,able to make needs known using dominican interpretor. VSS.Pt c/o pain to BLE/insomnia medicated per EMAR with relief reported. SOA w/exertion,NPC.On oxygen 3L/NC. Pt needs reminders not to try and get up w/o calling for help. Max assist with ADLs,had a BM at HS via bedpan. Herbert patent draining yellow urine. RIJ patent with good blood return. Fall precautions in place,resting quietly at this time.
[2019-09-17 08:18] VITALS: BP 123/73
--- NOTE | 2019-09-17 11:02 | NUR ---
Nutrition reassessment: Extubated and has transferred out of ICU. COVID +. Diet has advanced and pt eating well. Wt has decreased about 13 lb during this admission however would expect to become more stable now that eating well and medical status improving. Change nutrition status to low risk.
--- NOTE | 2019-09-17 11:56 | NUR ---
POWER reviewed chart and spoke with nursing and attending physician. Pt remains in Enhanced Isolation due to COVID-19. Pt's repeat test yesterday is positive. Pt is afebrile and on 3L of O2. Pt is on IV abx. Therapy continues to work with pt. [facility] in acute rehab is unable to accept pt until pt has two negative COVID tests. Pt does not have health insurance and will not qualify for Medicaid. POWER contacted [facility] liaison who states they are unable to accept uninsured pts at this time. POWER contacted [facility] [place], who states they are unable to accept COVID positive pts at this time. POWER left voice message for Alexsandra at [facility] in acute rehab to see if they are still accepting COVID positive pts and could potentially accept a justyna case. No weekend discharge planned. POWER is following to assist as needed with discharge planning.
[2019-09-17 15:49] VITALS: BP 147/84
--- NOTE | 2019-09-17 16:23 | NUR ---
PT CARE ASSUMED APPROX 0700. ASSESSMENT CHARTED. PT DENIES PAIN AND SOA, N/V. VSS. PT STRENGTH IMPROVED SIGNIFICANTLY THIS SHIFT. PT COMPLIANT WITH FALL PRECAUTIONS. TOLERATING POC. DENIES QUESTIONS OR CONCERNS REGARDING POC DESPITE LANGUAGE BARRIER. NO DISTRESS NOTED.
[2019-09-17 22:43] VITALS: BP 166/92
--- NOTE | 2019-09-18 01:32 | NUR ---
PT AOX4. PT MALAY SPEAKING ONLY, CAN UNDERSTAND SOME MAORI. PT ABLE TO READ IN MALAY. PT REPORTS NONCARDIAC PAIN IN CHEST DUE TO COUGHING. PT RECEIVING PRN PO NORCO Q4HR. PT WITH LOW GRADE FEVER OF 99.2. PT REPORTS SOB. PT ASSESSED WITH LOW OXYGEN SATURATIONS IN THE 70S ON ROOM AIR, 3L O2 APPLIED VIA NC, SATURATIONS NOTED TO IMPROVE TO 95%. PROVIDED EDUCATION TO PT REGARDING OXYGEN USE AND EFFECTS, PT RECEPTIVE TO EDUCATION REPORTING SHE WILL KEEP IT ON. PT CONTINUES TO HAVE WEAKNESS AND NUMBNESS TO BUE AND BLE. PT ABLE TO ASSIST WITH REPOSITIONING. FREQUENT REPOSITIONING ENCOURAGED. PT TOLERATING PO INTAKE OF THIN FLUIDS WITH CARB CONTROLLED, MECHANICALLY CHOPPED DIET. ENCOURAGED PT TO NOTIFY STAFF FOR ALL NEEDS. CALL LIGHT WITHIN REACH, BED ALARM ON, BED IN LOWEST POSITION, WILL CONTINUE TO MONITOR.
[2019-09-18 04:16] VITALS: BP 147/82
[2019-09-18 08:17] VITALS: BP 147/90
--- NOTE | 2019-09-18 08:24 | HC ---
[facility] [place] [address] CONSULTATION Name: CHARLOTTE POWELL Room #: 360-P ADM IN M.R.#: [id number] Admission: 09/01/19 Attend Phys: Bruce Meade MD Discharge: Date of : 70 Report #: [id number] THIS REPORT FOR: cc: MELE - No family physician/PCP MELE - No family physician/PCP Pepe Mcdonnell MD ~ CC: [facility] physician/PCP Bruce Meade DATE OF SERVICE: 09/17/2019 HISTORY OF PRESENT ILLNESS: This is a 48-year-old female patient who was evaluated by me for numbness in the legs. Her history is very difficult to get. This is mainly because of the language barrier. She is complaining of pain in the lower extremities. I do not know how long it is going on. She has multiple issues, which can cause neuropathy. She has newly diagnosed diabetes. She has kidney failure where her GFR went pretty low. She has been critically ill. I do not know how long this numbness and weakness is going on. I will talk to the hospitalist. REVIEW OF SYSTEMS: Indicates that she has presented to Emergency Room here with respiratory symptoms. Her brother also was COVID positive. Now, she also has weakness and numbness in the lower extremities. That is all the history I can get. We need to get a electroencephalograph technician arranged to get more history and I will talk to Dr. Win about it. A 14-point review of system was carried out. A lot of it is from the records because of the language barrier. She is on a small dose of gabapentin, which is helping out. PAST MEDICAL HISTORY: Negative for neuropathy. As you know, she has been diagnosed with diabetes and is being followed by Endocrinology. Her hemoglobin A1c was pretty high. SOCIAL HISTORY: Unavailable. PHYSICAL EXAMINATION: Indicates she is alert. She does follow simple commands, but her memory cannot be checked because of the language barrier. Cranial nerve examination is also incomplete, but does not look like she can have any focality there. She moves all 4 extremities including lower extremities. She can move against gravity and resistance. She is weak in all 4 extremities. I tried to do the position sense, she does not understand the instructions. Reflexes are diminished, but I do not know what her baseline is for the diabetes. That is all the examination, I could carry out. Cardiac and respiratory examinations appear noncontributory. Her last COVID test is still positive. 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 I will [address] [address] CONSULTATION Name: CHARLOTTE POWELL Room #: [address] [place] [address] IN M.R.#: [id number] Admission: 09/01/19 Attend Phys: Bruce Meade MD Discharge: Date of : 70 Report #: [id number] check for any other cause. So, I ordered B12 and sed rate. In this patient, last sed rate was high, but she also has infections difficult to interpret. She is still COVID positive, but I do not know what the protocol for doing an MRI is. Because of that, they are usually reluctant for that. I will discuss with the patient with Dr. Win, the hospitalist and then decide about any other thing which we can do to rule it out. EMG will not be possible because we do not have any machine in the hospital yet. Thank you very much for this referral. Addendum This addendum is being added at the time of signing the report. I discussed patient with Dr Win after dictating the note. He said there is protocol they have to follow to do MRI in patients with COVID positive. He is going to arrange MRI of Lumbar and thoracic spine by following that protocol . Please call if any follow up needed and contact Neurosurgery if any finding on MRI of spine is noted. Otherwise I will sign off and follow up PRN <ELECTRONICALLY SIGNED> By: Pepe Mcdonnell MD 09/18/19 [id number] Pepe Mcdonnell MD /nt
[2019-09-18 11:49] VITALS: BP 152/75
--- NOTE | 2019-09-18 13:28 | NUR ---
Assumed pt care at 7am.Pt in bed resting .Pt speaks vietnamese with little Lithuanian.Assessment completed.vss.Assisted pt with feeding at alltimes.Good appetite,Pt tolerated meds and diet.C/o rt knee pain and tyleol susp given as ordered with relief. Fall bundle in place for pt safety.Will continue to monitor.
[2019-09-18 15:15] VITALS: BP 149/84
[2019-09-18 19:48] VITALS: BP 127/76
[2019-09-19 02:48] VITALS: BP 136/88
[2019-09-19 07:34] VITALS: BP 122/63
--- NOTE | 2019-09-19 07:35 | NUR ---
Pt. rested quietly at intervals during the night when checked on during frequent rounds. She did c/o some non-cardiac chest pain and po tylenol given (see emar) with some relief noted. Pt. does have a non-productive dry cough and head of the bed elevated. She has been able to void post carpio catheter removal. Bed alarm is on.
[2019-09-19 16:00] VITALS: BP 128/83
--- NOTE | 2019-09-19 19:43 | NUR ---
ASSUMED PATIENT CARE THIS SHIFT AT APPROXIMATELY 0700. PATIENT AWAKE AND ALERT, O2 SAT STABLE ON 3LNC. ASSESSMENT AND MEDS CHARTED. PATIENT NEUOPATHY PAIN MANAGED WITH PO NORCO X1 THIS SHIFT. TOLERATING 100% OF ALL HER MEALS. STILL NEEDS ASSISTANCE WITH FEEDING, STATES THAT SHE FEELS THAT HER HANDS ARE "ASLEEP" UNABLE TO DO FINE MOTOR MOVEMENTS WITH HANDS. PATIENT RESWABBED FOR COVID THIS SHIFT. ASSISTED PATIENT TO BSC AND BEDSIDE CHAIR FOR BREAKFAST AND PATIENT VERY WEAK, MAX ASSIST WITH TRANSFERS.
[2019-09-19 20:33] VITALS: BP 146/87
[2019-09-20 04:56] VITALS: BP 137/77
[2019-09-20 08:00] VITALS: BP 134/76
--- NOTE | 2019-09-20 08:03 | NUR ---
PT TRANSFERRING TO BEDSIDE COMMODE WITH ASSIST AND IS TOLERATING FAIR. TYLENOL PROVIDING PAIN RELIEF. RESTING COMFORTABLY. NO NEEDS VOICED. CALL LIGHT WITHIN REACH. FREQUENT OBSERVATION.
--- NOTE | 2019-09-20 09:56 | NUR ---
WOUND CONSULT; THIS IS A PATIENT THAT IS COVID POSITIVE AND IS WEAK. SHE IS IN GOOD SPIRITS. THERE ARE SKIN TEARS TO THE BUTTOCKS BILATERALLY AND RIGHT INNER THIGH. NO S/S OF INFECTION. SCANT DRAINAGE. RECOMMENDATIONS; Q2H TURNING ZGUARD TO BILATERAL BUTTOCKS AND LEFT INNER THIGH BID/PRN RN PRESENT
[2019-09-20 11:01] VITALS: BP 127/72
--- NOTE | 2019-09-20 14:51 | NUR ---
SW reviewed chart and spoke with nursing and attending physician. Pt is in Enhanced Isolation due to COVID-19. Pt's repeat test on 09/15 was positive. Pt to have MRI of the spine today due to weakness in her lower extremities. Pt is afebrile and not on O2. Pt will need two negative COVID tests in order to qualify for [facility]/in[facility] acute rehab status. Med Assist is following to assist pt with financial assistance application. POWER is following to assist as needed with discharge planning.
[2019-09-20 16:05] VITALS: BP 119/75
--- NOTE | 2019-09-20 18:26 | NUR ---
ASSUMED PATIENT CARE THIS AM AT APPROXIMATELY 0700. PATIENT AWAKE ALERT ORIENTED. STATES SHE WANTS TO WORK WITH PT TODAY TO GET STRONGER. PATIENT WORKED WITH SPEECH, OT AND PT TODAY. TOLERATED BEING OUT OF BED FROM 8AM TO 1500. EATING 100% OF ALL MEALS. O2 SAT STABLE ON 2LNC TODAY. ABLE TO TOLERATE BEDBATH TODAY WITH OT.
[2019-09-20 19:14] VITALS: BP 151/77
--- NOTE | 2019-09-20 21:29 | NUR ---
PT RESTING IN BED TALKING ON PHONE IN CROATIAN. DAY SHIFT NURSE WHO IS BI LINGUAL MADE PT FLASH CARDS FOR NEEDS. PT LUNGS CLEAR, BLE EDEMA, DISTENDED ABD WITH HYPOACTIVE BS. PT DECLINED HS SNACK BUT HAS SEVERAL IN ROOM FROM HOME. PT COMPLIANT WITH MEDS. PT HAD PRN FOR PAIN FOR NEUROPATHY BLE. PT VERBALIZED THROUGH DAY SHIFT NURSE SHE WILL CALL FOR ASSIST WITH TRANSFERS TO BSC. SMILING GOOD EYE CONTACT, NOT SOA WHEN TALKING ON PHONE.
[2019-09-21 05:09] VITALS: BP 146/85
[2019-09-21 07:32] VITALS: BP 124/75
[2019-09-21 12:06] LABS: IgA 180 mg/dL (87-352); IgG 813 mg/dL (586-1602); IgM 93 mg/dL (26-217)
--- NOTE | 2019-09-21 14:41 | NUR ---
PT CARE ASSUMED 0700, PT ALERT AND ORIENTED X4, PT IS LITHUANIAN SPEAKING, TRANSLATER SYSTEM USED PER PROTOCOL. PT DENIES CHEST PAIN, NAUSEA AND VOMITTING. PT COMPLAINS OF LEG PAIN AND SOR THROAT DUE TO RECENT INTUBATION. PAIN MED GIVEN PER ORDER. PT IS ON 2L OF O2 VIA NC, NO SIGNS OF DISTRESS NOTED. PT UP WITH ONE ASSIST, USES A WALKER. DENIES ANY NEEDS MARYLU. PT IS UP IN CHAIR MARYLU, CALL LIGHT AND TABLE IN REACH. CHAIRL ALARM ON, WILL CONTINUE TO MONITOR.
--- NOTE | 2019-09-21 15:08 | NUR ---
POWER reviewed chart and spoke with nursing and attending physician. Pt is in Enhanced Isolation due to COVID-19. Pt is afebrile and on 2L of O2. MRI of spine ordered. Pt will need two negative COVID tests in order to go to [facility]/in[facility] acute rehab status. Med Assist to submit Medication application on pt's behalf. Pt does not meet the regular criteria for Medicaid, but may qualify based on dx of COVID. POWER spoke with pt's son, Cortes, via phone to provide update. POWER explained the barrier for pt's rehab is her continued positive COVID test results. Pt's son verbalized understanding. POWER is following to assist as needed with discharge planning.
[2019-09-21 16:07] VITALS: BP 146/88
[2019-09-21 19:39] VITALS: BP 125/81
[2019-09-22 05:04] VITALS: BP 123/73
--- NOTE | 2019-09-22 05:39 | NUR ---
ASSUME CARE AT 1900. COMMUNICATED WITH PT USING FLASH CARDS AND GOOGLE TRANSLATE NEEDED. GAVE PAIN MEDS AT BED TIME FOR LEFT LEG PAIN. SATTING WELL ON 2L O2. PT REPORTED WARM DRINKS MADE HER THROAT FEEL BETTER. NO FURTHER CONCERNS, WILL CONTINUE TO MONITOR.
[2019-09-22 08:29] VITALS: BP 132/71
--- NOTE | 2019-09-22 10:41 | NUR ---
WOUND CARE F/U; DUE TO COVID RESTRICTIONS OF THE WOUNDS ARE BASED ON THE RN'S ASSESSMENT. MY INITIAL ASSESSMENT WAS 09/22/19. THE WOUNDS WERE ALMOST HEALED AT THAT TIME. THE RN STATES HER ASSESSMENT ARE UNCHANGED. THE PATIENT CHOOSES TO USE HER OWN CREAM TO THESE AREAS LIKLY DUE TO PRIVACY/CULTURAL CONCERNS. I AM AGREEABLE TO THIS. CONTINUE WITH THIS PLAN OF CARE. DISCUSSED WITH RN
--- NOTE | 2019-09-22 16:25 | NUR ---
PT CARE ASSUMED AT 0700, PT ALERT AND ORIENTED X4, PT IS MACEDONIAN SPEAKING, TRANSLATE USE PER PROTOCOL. PT DENIES CHEST PAIN, NAUSE AND VOMITTING. PT CMPLAINS OF LEFT LEG PAIN, ICY CREAM AND PAIN MED GIVEN ORDERED. PT IS ON 2L OF O2 VIA NC, NO SIGNS OF DISTRESS NOTED. ONE ASSIST TO BED SIDE COMMODE. CALL LIGHT AND TABLE WITH REACH. BED AT LOWEST LEVEL. WILL CONTINUE TO MONITOR.
[2019-09-22 16:30] VITALS: BP 126/74
--- NOTE | 2019-09-22 16:48 | NUR ---
SW reviewed chart and spoke with nursing and attending physician. Pt is in Enhanced Isolation due to COVID-19. Pt is afebrile and on 2L of O2. [facility] consult ordered. Pt will need two negative COVID tests in order to be admitted to [facility]. POWER is following to assist as needed with discharge planning.
[2019-09-22 19:54] VITALS: BP 121/75
--- NOTE | 2019-09-23 02:49 | NUR ---
ASSESSMENT: PT REMAIN ALERT AND ORIENT TIMES FOUR. C/O JOSH LE LEG PAIN, NARCO GIVEN AND LEGS RUBBED DOWN WITH ICY/HOT OINTMENT. PT IS VERY WEAK, NEEDS SBA TO BSC. VSS, AFEBRILE. TOLERATING PO INTAKE, DENIES NAUSEA. CAMEROONIAN SPEAKING MOSTLY BUT IS ABLE TO LET HER NEEDS BE KNOWN. RIGHT IJ DL INTACT AND PATENT, SLOW PROGRESS TOWARDS DC GOALS, WILL CONTINUE TO MONITOR.
[2019-09-23 04:27] VITALS: BP 137/74
[2019-09-23 06:12] LABS: HEMATOCRIT 31.4 % (37.0-47.0); HEMOGLOBIN 10.6 gm/dL (12.0-15.0); MCH 31.3 pg (26.0-34.0); MCHC 33.9 g/dL (28.0-37.0); MCV 92.3 fL (80.0-100.0); RBC 3.4 mil/uL (4.20-5.00); RDW 14.9 % (10.5-14.5); WBC 9.6 thou/uL (4.0-11.0)
[2019-09-23 06:26] LABS: CALCIUM 8.3 mg/dL (8.5-10.1); CREATININE 0.8 mg/dL (0.6-1.0); POTASSIUM 3.5 mmol/L (3.5-5.1)
[2019-09-23 07:50] VITALS: BP 110/55
--- NOTE | 2019-09-23 13:41 | NUR ---
PT CONTINUE TO BE ALERT AND ORIENTED X4, DENIES CHEST PAIN, NAUSEA AND VOMITTING. PT IS ON 2L OF O2, TOLERATING IT WELL. NO SIGNS OF DISTRESS NOTED. PT IS SLOWLY GETTING HER STRENGTH BACK. PT WALKED TO THE BATHROOM USING THE WALKER, STEADY AND SLOW, WAS ABLE TO TAKE A SHOWER. PT STATES SHE IS HAPPY SHE WAS ABLE TO TAKE A SHOWER AFTER A WHILE. COMPLETE BED CHANGE DONE. CALL LIGHT AND TABLE IN REACH. PT BED AT LOWEST LEVEL.PT DENIES ANY NEEDS MARYLU, WILL CONTINUE TO MONITOR.
--- NOTE | 2019-09-23 14:34 | NUR ---
SW reviewed chart and spoke with nursing and attending physician. Pt remains in Enhanced Isolation due to COVID-19. Pt is afebrile and is on 2L of O@. Pt is not on IV medications. Pt's repeat COVID test is positive. [facility] is following. Med Assist states that they will apply on behalf of pt to see if pt would qualify for [place] Medicaid based on COVID dx. SW is following to assist as needed with discharge planning.
[2019-09-23 16:45] VITALS: BP 112/55
[2019-09-23 20:30] VITALS: BP 130/78
[2019-09-24 05:00] VITALS: BP 148/75
[2019-09-24 08:26] VITALS: BP 142/75
--- NOTE | 2019-09-24 09:40 | NUR ---
Followup: continues to eat well 80-100% of meals as recovering and progressing goal from COVID infection. Wt down to 206 lb. Diet has been upgraded. Will order glucerna shakes bid to help maintain pts current wt status. Note may be progressing towards discharge soon. Low nutrition risk
--- NOTE | 2019-09-24 10:34 | NUR ---
WOUND CARE F/U; DISCUSSED THE WOUNDS WITH RN WELL REVIEWED THE CURRENT PICTURES TOGETHER. NO REMARKABLE CHANGES. ALTHOUGH LOOKS CLINICALLY BETTER. RECOMMENDATIONS; NO CHANGES TO POC RN PRESENT
--- NOTE | 2019-09-24 14:51 | NUR ---
SW reviewed chart and spoke with nursing and attending physician. Pt remains in Enhanced Isolation due to COVID-19. Pt is afebrile and on 2L of O2. Pt continues to work with therapy. No weekend discharge planned. [facility] is following. Pt will need two negative COVID tests in order to be able to go to [facility]. SW is following to assist as needed with discharge planning.
[2019-09-24 15:22] VITALS: BP 115/76
--- NOTE | 2019-09-24 16:23 | NUR ---
PT APPEARS TO BE PROGRESSING BETTER TODAY, PT IS ABLE TO TRANSFER SELF FROM BED TO EDGE OF BED WITH STABILITY AND STATED BEING ABLE TO USE THE BSC BY SELF, PT IS COGNIZANT OF OWN ABILITIES, PT IS SUFFERING THROUGH A MAJOR LOSS OF A FAMILY MEMBER YESTERDAY SO HER AFFECT WAS FLAT THIS SHIFT. PAIN MEDICATION WAS PROVIDED, PT COMPLAINED OF PAIN AT THE L LOWER EXTREMETY DURING THE SHIFT, HYDROCODONE WAS PROVIDED PER REQUEST. [employer] WAS UTILIZED TO COMMUNICATE WITH THE PATIENT, IT WAS EFFECTIVE
[2019-09-24 19:03] VITALS: BP 121/70
[2019-09-25 04:48] VITALS: BP 130/66
[2019-09-25 05:29] LABS: CALCIUM 8.2 mg/dL (8.5-10.1); CREATININE 0.8 mg/dL (0.6-1.0); POTASSIUM 3.8 mmol/L (3.5-5.1)
[2019-09-25 05:34] LABS: HEMATOCRIT 30.3 % (37.0-47.0); HEMOGLOBIN 10.1 gm/dL (12.0-15.0); MCH 31.2 pg (26.0-34.0); MCHC 33.5 g/dL (28.0-37.0); MCV 93.2 fL (80.0-100.0); RBC 3.25 mil/uL (4.20-5.00); RDW 15.1 % (10.5-14.5); WBC 7.3 thou/uL (4.0-11.0)
--- NOTE | 2019-09-25 07:32 | NUR ---
INCREASING HER STRENGTH DAY BY DAY. SHE DOES CALL FOR ASSIST UP TO THE BSC. COMPLAINS OF PAIN TO HER LOWER EXTREMITIES. HYDROCODONE GIVEN ORDERED.
[2019-09-25 08:50] VITALS: BP 129/67
[2019-09-25 17:40] VITALS: BP 128/65
[2019-09-25 20:36] VITALS: BP 143/87
--- NOTE | 2019-09-26 03:12 | NUR ---
ASSUMED PT CARE AROUND 1930. CALLS APPROPRIATELY FOR HELP. NO S/S ACUTE DISTRESS NOTED OR REPORTED AT THIS TIME. WILL CONT TO MONITOR FOR ANY CHANGES IN CONDITION.
[2019-09-26 08:30] VITALS: BP 144/78
[2019-09-26 17:25] VITALS: BP 151/81
[2019-09-26 21:27] VITALS: BP 144/80
[2019-09-27 04:24] VITALS: BP 113/43
--- NOTE | 2019-09-27 04:45 | NUR ---
ASSUMED CARE AT 1900, ASSESSMENT COMPLETED. PT REPORTED MODERATE BILATERAL LEG PAIN, GAVE NORCO ONCE OVERNIGHT. PT DENIED NAUSEA. REPORTED SMALL AMOUNT OF SOB, SATTING WELL ON RA. UP AD JOSE ALFREDO IN ROOM. GAVE MELATONIN AT HS. NO FURTHER CONCERNS, WILL CONTINUE TO MONITOR.
--- NOTE | 2019-09-27 10:58 | NUR ---
WOUND CARE F/U DUE TO COVID ISOLATION/RESTRICTIONS LIMIT ASSESSMENT OF WOUNDS, VIEWED PHOTOS AND REVIEWED CARE W/ PROFESSIONAL POKER PLAYER TYLOR, ASKED TO INFORM WOUND RN IS WORSENING LAST REPORT HEALING W/ NO S/S INFECTION RECOMMENDATIONS; CONT CURRENT POC, CONT PROTECTIVE CREAM IE Z GUARD DAILY AND PRN, ENCOURAGE OFF LOADING, PRESSURE RELIEF PROFESSIONAL POKER PLAYER AWARE
[2019-09-27 11:32] VITALS: BP 120/60
[2019-09-27 15:32] VITALS: BP 134/74
--- NOTE | 2019-09-27 16:35 | NUR ---
ASSUMED CARE OF PT AT 0700. PT ALERT AND ORIENTED IN NO ACUTE DISTRESS. UP TO BSC W/O DIFFICULTY. GOOD PROGRESS WITH THERAPIES. BLE PAIN WELL CONTROLLED WITH CURRENT MED REGIMEN. SUGARS REMAIN HIGH, DISCUSSED WITH ENDO. ANTICIPATE D/C TOMORROW.
--- NOTE | 2019-09-27 16:55 | NUR ---
POWER reviewed chart and spoke with nursing and attending physician. Pt remains in Enhanced Isolation due to COVID-19. Pt is afebrile and not requiring O2. Pt is not on IV meds. Anticipate discharge home tomorrow with HH services. Pt will also need a roller walker. POWER left voice message for pt's son, Cortes, to discuss discharge plan. POWER faxed clinical info to [facility] to request [facility] visits. POWER notified HH liaison of new referral. POWER is following to assist as needed with discharge planning.
[2019-09-27 20:21] VITALS: BP 138/90
[2019-09-28 04:31] VITALS: BP 128/79
--- NOTE | 2019-09-28 06:29 | NUR ---
Pt. slept intermittently during the night ( noise nextdoor - pt. hollering loud). Denies any pain at this time. Cont. on enhanced precaution , afebrile. O2 2L/NC , shortness of breath with exertion . Up ad kings[place] in room. Making progress towards care plan goals.
[2019-09-28 07:50] VITALS: BP 149/79
--- NOTE | 2019-09-28 10:56 | NUR ---
ASSUMED PATIENT CARE THIS SHIFT AT APPROXIMATELY 0700. PATIENT AWAKE, ALERT, ORIENTED, NO S/S OF DISTRESS NOTED. ASSESSMENT AND MEDS CHARTED. PATIENT PLANS TO GO HOME TODAY WITH HOME HEALTH. SPOKE WITH PATIENT REGARDING INSULIN INSTRUCTIONS PER ENDOCRINOLOGY AND PATIENT REPORTED UNDERSTANDING. PATIENT STATES THAT HER FAMILY BOUGHT A WALKER FOR HER AND IT IS WAITING FOR HER AT HOME. PATIENT O2 SAT STABLE ON ROOM AIR. TOLERATING ACTIVITY
[2019-09-28] MEDS ORDERED: COMBIVENT RESPIM4 GM INH (12:43)
[2019-09-28] MEDS ORDERED: HUMALOG MI100 UNIT/6 SUBQ (12:44)
[2019-09-28] MEDS ORDERED: GABAPENTIN 100100 MG PO (12:44)
[2019-09-28] MEDS ORDERED: VITAMIN D21250 MC1 PO (12:45)
[2019-09-28 13:30] VITALS: BP 149/79
--- NOTE | 2019-09-28 13:32 | NUR ---
PATIENT GIVEN DISCHARGE INSTRUCTIONS AT THIS TIME RE: FOLLOW UP APPOINTMENTS, NEW MEDICATIONS AND ISOLATION PROCEDURES. PATIENT VERBALIZED UNDERSTANDING OF ALL TEACHING AT THIS TIME. ALSO SPOKE WITH PATIENTS SON ROMA AND UPDATED ON DISCHARGE PLAN AND NEW MEDICATIONS. VERBALIZED UNDERSTANDINGS. PATIENT FAMILY ALREADY DOWNSTAIRS WAITING TO ITEM REPAIR MANAGER PATIENT, REFUSED NEW PICTURES OF WOUNDS AT THIS TIME. NO IV SALINE LOCK IN TO REMOVE. NO TELEMETRY MONITORING, MONITOR AT STATION. LEFT UNIT VIA WHEELCHAIR WITH ALL PERSONAL BELONGINGS. NO DISTRESS NOTED AT TIME OF DISCHARGE, LEFT IN STABLE CONDITION.
--- NOTE | 2019-09-28 15:28 | NUR ---
DISCHARGE NOTE: POWER reviewed chart and spoke with nursing and attending physician. Pt remains in Enhanced Isolation due to COVID-19. Pt is medically stable for discharge home with HH today. Pt is off O2. POWER notified that [facility] is able to accept pt on service for [facility] visits. Attending physician will follow for HH orders. menu planner to fax finalized discharge orders/summary to [facility]. Pt's home address: [address] [place] [address]. [facility] [id number]. POWER spoke with pt's son, Cortes, to discuss discharge plan. Pt already discharged home. Pt's family bought pt a walker. No additional discharge needs identified at this time. Case closed.
[2019-09-28 15:50] VITALS: BP 149/79
--- NOTE | 2019-09-28 16:20 | NUR ---
FAXED DC ORDERS/SUMMARY TO [facility] HH SPOKE WITH [place] IN INTAKE SHE RECEIVED ORDERS AND WILL CALL PT'S SON (ROMA) TO ARRANGE VISITS. SHE WILL BE AUDRA TO DO 1-2 [place] VISITS.
== END 2019-09-28 13:22 | disposition home health service (06) | DRG 870 ==
LOC: ER 18:23 → EROBS 20:51 → 3W 20:51 → EROBS 09-02 02:07 → 3W 09-02 02:54 → ICU 09-03 02:59 → 3W 09-15 12:58
PROVIDERS: Hospitalist; Internal Medicine Pulmonary Disease; Nurse Practitioner Family; Pediatrics; Physician Assistant; Psychiatry & Neurology Neuromuscular Medicine; Specialist; ADMIT Internal Medicine; ATTEND Internal Medicine
DX: A41.9 Sepsis, unspecified organism (principal); U07.1 COVID-19; J12.89 Other viral pneumonia; J96.01 Acute respiratory failure with hypoxia; N17.0 Acute kidney failure with tubular necrosis; G72.81 Critical illness myopathy; G82.20 Paraplegia, unspecified; E87.0 Hyperosmolality and hypernatremia; Z68.41 Body mass index [BMI] 40.0-44.9, adult; R65.20 Severe sepsis without septic shock; E78.5 Hyperlipidemia, unspecified; E55.9 Vitamin D deficiency, unspecified; E11.65 Type 2 diabetes mellitus with hyperglycemia; I12.9 Hypertensive chronic kidney disease with stage 1 through stage 4 chronic kidney disease, or unspecified chronic kidney disease; E66.01 Morbid (severe) obesity due to excess calories; N18.2 Chronic kidney disease, stage 2 (mild); E11.22 Type 2 diabetes mellitus with diabetic chronic kidney disease; E11.40 Type 2 diabetes mellitus with diabetic neuropathy, unspecified; Z90.49 Acquired absence of other specified parts of digestive tract; Z79.899 Other long term (current) drug therapy
CPT/HCPCS: 10078; 10779; 10879